=== PATIENT | female | born 1970 | race African-American/Black ===

== ENCOUNTER 2023-05-19 11:23 | Emergency (ER) | payer MEDICAID, OTHER ==
[~2023-05-19] VITALS: Ht 165.1 cm; Wt 81.6 kg
[~2023-05-19 11:23] MED LIST: VILA20TA
[2023-05-19 11:37] VITALS: BP 131/85; PULSE 91; RESP 18; TEMP 98.3; O2SAT 98
[2023-05-19] MEDS ORDERED: ACETAMINOPHEN 325MG TABLET PO ONE (13:15)
[2023-05-19] MEDS ORDERED: TOPUD PO (14:14)
== END 2023-05-19 15:53 | disposition home or self-care (01) ==
LOC: ER 11:23
DX: M25.522 Pain in left elbow (principal); F41.0 Panic disorder [episodic paroxysmal anxiety]; J45.909 Unspecified asthma, uncomplicated
CPT/HCPCS: 73080; 99283